=== PATIENT | female | born 1995 | race African-American/Black ===

== ENCOUNTER 2023-11-23 12:27 | Outpatient (AMB) | payer OTHER, SELFPAY ==
--- NOTE | 2023-11-23 12:26 | AM.OFFWIN_ITS ---
Intake Vital Signs 11/23/23 12:28 Height 5 ft 6 in Weight 189 lb BMI 30.5 BP 130/70 Blood Pressure Location Lt brachial Position Sitting Pulse 86 Pulse Source Pulse Oximeter Temp 97.5 F Temp Source Temporal Artery Scan Pulse Oximetry (%) 96 Oxygen Delivery Method Room Air Intake Visit Reasons: [employer]PECT[employer] School PE/Ok per Dr. 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 Gates HPI Details Pt is requesting a physical to enter college. 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 [facility] Social History Patient Tobacco Use Status: Current everyday Tobacco user Physical Exam Vital Signs: Last Vital Signs Temp 97.5 F 11/23/23 12:28 Pulse 86 11/23/23 12:28 BP 130/70 11/23/23 12:28 Pulse Ox 96 11/23/23 12:28 Oxygen Delivery Method Room Air 11/23/23 12:28 BMI result Body Mass Index 30.5 Const General: cooperative and healthy appearing Nutritional Appearance: well nourished Orientation/consciousness: patient oriented x3 Limitations: no limitations HEENT Head: Yes normal to inspection Eyes General: appearance normal, both eyes and all related structures Neck Neck: Yes normal visual inspection Chest Chest palpation & inspection: normal palpation of entire chest wall Resp Effort & Inspection: normal respiratory effort Neuro General: patient oriented x3 Assessment & Plan Assessment & Plan (1) School physical exam: Code(s): Z02.0 - Encounter for examination for admission to educational institution Plan T spot test ordered. When results are back, will sign the form. Orders: Orders T Spot TB Today Z02.0 - Encounter for examination for admission to educational institution Coding Level of Care Code Sports/Work/School Physical Diagnoses School physical exam Z02.0
[2023-11-23 12:28] VITALS: BP 130/70; PULSE 86; TEMP 36.4; O2SAT 96; BMI 30.5
== END 2023-11-23 13:27 | disposition home or self-care (01) ==
PROVIDERS: Visit Provider Internal Medicine
DX: Z02.0 Encounter for examination for admission to educational institution (principal)
CPT/HCPCS: 99499

== ENCOUNTER 2023-11-25 08:21 | Outpatient (REF) | payer OTHER, SELFPAY ==
[2023-11-28 10:49] LABS: TS Negative Control Passed; TS Panel A 0; TS Panel B 0; TS Positive Control Passed; TSpotTB Negative (Negative)
== END 2023-11-25 08:22 | disposition home or self-care (01) ==
LOC: HO.HMGCLDS 08:21
PROVIDERS: Visit Provider Internal Medicine
DX: Z02.0 Encounter for examination for admission to educational institution (principal)
CPT/HCPCS: 36415; 86481

== ENCOUNTER 2023-12-27 15:02 | Emergency (ER) | payer OTHER, SELFPAY ==
--- NOTE | ~2023-12-27 | CT_ITS ---
EXAMINATION: CT SOFT TISSUE NECK WITH CONTRAST CLINICAL INFORMATION: lumps in upper eye lids, neck lymphadenopathy COMPARISON: None. TECHNIQUE: Following the administration of 75 mL of Omnipaque 350 intravenous contrast, helical imaging was performed in the axial plane with generation of coronal and sagittal reformatted images. This CT examination was performed using dose optimization techniques as appropriate, variously including the following: *Automated exposure control. *Adjustment of mA and/or kV according to patient size (this includes techniques or standardized protocols for targeted exams where dose is matched to indication/reason for exam; i.e. extremities or head). *Use of iterative reconstruction technique. DLP: 779 mGy-cm. FINDINGS: Nasopharynx/skull base: The fat planes of the skull base and soft tissues of the nasopharynx are unremarkable. The paranasal sinuses and mastoid air cells are well aerated. The temporomandibular joints are normal. Suprahyoid neck: The oropharynx, oral cavity, and bilateral salivary gland tissues are unremarkable. Accessory right parotid tissue is noted superficial to the anterior right masseter muscle. Infrahyoid neck: The hypopharynx and larynx are unremarkable. No aerodigestive tract mass. Thyroid: Thyromegaly. No focal thyroid lesion is identified. Lymph nodes: There is no cervical chain lymphadenopathy. There is a soft tissue mass along the right trachea at the level of the thoracic inlet measuring up to 3.2 x 1.6 x 2.4 cm, likely representing an enlarged lymph node. Lung apices: Please refer to report from same-day CT of the chest performed concurrently for description of findings in the thorax. Vascular structures: No hemodynamically significant stenosis, dissection, or occlusion. Osseous structures: The osseous structures are intact without suspicious focal lesion. Other: The imaged portions of the brain parenchyma are unremarkable. CT/CT soft tissue neck w IV con IMPRESSION: 1. Thyromegaly. Correlate with thyroid function tests. 2. No cervical lymphadenopathy or other soft tissue abnormality in the neck is identified. 3. Please refer to report from same-day CT of the chest for full description of findings in the thorax. There is a right paratracheal soft tissue mass measuring up to 3.1 cm at the level of the thoracic inlet, most likely representing an enlarged lymph node.
--- NOTE | ~2023-12-27 | CT_ITS ---
EXAMINATION: CT CHEST WITH CONTRAST CLINICAL INFORMATION: Neck lymphadenopathy. Night sweats. COMPARISON: None available. TECHNIQUE: Multidetector volumetric CT imaging of the chest was obtained after the administration of 75 mL of Omnipaque 350 intravenous contrast without immediate adverse reactions. Axial MIP volume rendering provided. Sagittal and coronal reformatted images were obtained. This CT examination was performed using dose optimization techniques as appropriate, variously including the following: *Automated exposure control *Adjustment of mA and/or kV according to patient size (this includes techniques or standardized protocols for targeted exams where dose is matched to indication/reason for exam; i.e. extremities or head) *Use of iterative reconstruction technique DLP: 316 mGy-cm FINDINGS: LUNGS: A few small solid noncalcified pulmonary nodules are noted including a 4 mm subpleural pulmonary nodule at the posterior aspect of the right upper lobe on image 147 of series 8 and a 3 mm pulmonary nodule in the left lower lobe on image 239. A few small intraluminal opacities within the bronchi the right lower and left upper lobes may correspond to intraluminal mucus. Central airways are clear. No consolidation. No tears of the interstitial opacities. MEDIASTINUM: Mediastinal and hilar adenopathy are noted. There is a right upper paratracheal node measuring 1.4 cm in short axis diameter (image 11 of series 5) in addition to a 1.5 cm paratracheal node seen on image 23 of series 5 and other enlarged mediastinal nodes. Multiple bilateral enlarged hilar lymph nodes are observed, measuring up to 1.2 cm in short axis on the right and 1.1 cm on the left. There is a 2 cm subcarinal lymph node. Heart is normal in size. No pericardial effusion. Central vasculature is patent. Thoracic aorta is normal in caliber. Thyroid gland is unremarkable. PLEURA: There is no pleural effusion. No pleural mass or thickening. AXILLA: No lymphadenopathy. UPPER ABDOMEN: Spleen measures 14 cm AP, borderline enlarged. Imaged portion of the upper abdomen is otherwise unremarkable OSSEOUS STRUCTURES: Normal. No aggressive osseous lesions. CT/CT chest w IV con IMPRESSION: 1. Mediastinal and hilar adenopathy. This is nonspecific and could be infectious or inflammatory in nature. In setting of borderline splenomegaly, mononucleosis should be considered. Consider correlation with a Monospot test. Lymphoproliferative disorders would also be on the differential in the setting of a negative Monospot test. 2. A few small solid noncalcified pulmonary nodules measuring up to 4 mm in diameter. Given the age group, these are most typically post infectious/inflammatory in nature. 3. A few small intraluminal opacities within the bronchi the right lower and left upper lobes may correspond to intraluminal mucus. Fleischner guidelines were followed.
--- NOTE | ~2023-12-27 | XR_ITS ---
EXAMINATION: XR CHEST CLINICAL INFORMATION: Chest pain COMPARISON: None available. TECHNIQUE: 2 views of the chest were obtained. FINDINGS: Lungs clear. No pleural effusions. Heart and pulmonary vessels are normal. XR/XR chest 2V IMPRESSION: No active disease.
[2023-12-27 15:14] VITALS: BP 119/79; PULSE 100; RESP 18; TEMP 36.3; O2SAT 97; BMI 29.6
--- NOTE | 2023-12-27 15:15 | ED.GENADULT ---
HPI - General Adult General Chief complaint: General Medical Stated complaint: Sob/lumps eye lid, cheeks,neck Time Seen by Provider: 12/27/23 18:09 Source: patient Mode of arrival: ambulatory Limitations: no limitations and altered mental status History of Present Illness ED Provider: Dr. Bren Au HPI narrative: Patient comes to the emergency room complaining of 2-3 months of lumps in both upper eyelids, pulses of the cheeks in the face, and lymphadenopathy. Patient reports night sweating as well. Patient denies any sore throat, no voice changes. Patient denies any nausea vomiting or diarrhea. No documented fever. Related Data Home Medications ?Medication ?Instructions ?Recorded ?Confirmed No Known Home Meds 11/23/23 Allergies Allergy/AdvReac Type Severity Reaction Status Date / Time No Known Allergies Allergy Verified 12/27/23 15:20 Review of Systems Review of Systems: Constitutional : No Weight loss, No Fever, No Chills, No Night Sweats, No Fatigue, No Malaise ENT/Mouth : No Hearing loss, No Ear Pain, No Nasal Congestion, No Sinus Pain, No Hoarseness, No sore throat, No Rhinorrhea, No Swallowing Difficulty Eyes: No Eye Pain, No Swelling, No Redness, No Foreign Body, No Discharge, No Vision Changes, complaining of growing lumps in the eyelids on the inner side bilaterally, no vision changes Cardiovascular : No Chest Pain, No SOB, No Dyspnea on Exertion, No Orthopnea, No Edema, No Palpitations Respiratory : No Cough, No Sputum, No Wheezing, No Smoke Exposure, No Dyspnea Gastrointestinal : No Nausea, No Vomiting, No Diarrhea, No Constipation, No abdominal Pain, No Hematochezia, No Melena Genitourinary : no irregular bleeding, No Dysuria, No Urinary Frequency, No Hematuria, No Urinary Incontinence, No Urgency, No Flank Pain, No Urinary Flow Changes, No Hesitancy Musculoskeletal : No joint pain, No Myalgias, No Joint Swelling Skin : No Skin Lesions, No rash Neuro : No Weakness, No Numbness, No Paresthesias, No Loss of Consciousness, No Dizziness, No Headache Psych : No Anxiety/Panic, No Depression, No SI/HI/AH/VH, No Social Issues, Heme/Lymph: No Bruising, No Bleeding, complaining of lymphadenopathy on the neck Endocrine : No Polyuria, No Polydipsia, No Temperature Intolerance PMFSH Social History Social History Patient Tobacco Use Status: Current everyday Tobacco user Advance Directives: No Advance Directives Information Provided: No Do you have a plan to hurt others: No Plan Physical Exam ED Vital Signs: Vital Signs - 24 hr 12/27/23 15:14 12/27/23 18:33 12/27/23 19:33 Temperature 97.3 F 98.7 F 98.4 F Pulse Rate 100 70 72 Respiratory Rate 18 14 16 Blood Pressure 119/79 112/78 99/72 Pulse Oximetry 97 96 99 Oxygen Delivery Method Room Air Room Air Room Air 12/27/23 23:17 Temperature 98.6 F Pulse Rate 75 Respiratory Rate 17 Blood Pressure 125/82 Pulse Oximetry 99 Oxygen Delivery Method Room Air BMI result Body Mass Index 29.6 Const Other: Appearance: Alert. Oriented X3. No acute distress. Eyes: Pupils equal, round and reactive to light. Red/fleshy lesions in the inner eyelids, not xanthelasma ENT: Pharynx normal. Palpable plaque above the right salivary gland Neck: Normal inspection. Neck supple. No crepitus, palpable lymph nodes around the neck CVS: Normal heart rate and rhythm. Pulses normal. Normal S1 and S2 Respiratory: No respiratory distress. Breath sounds normal. No Wheezing. No rales Abdomen: Soft and nontender. No rigidity. No distention. Skin: Skin warm and dry. Normal skin color. Normal skin turgor. Extremities: No lower extremity edema. No Lacerations. No Rash Neuro: Oriented X 3. No motor deficit. No sensory deficit. Moving all extremities. No slurred speech. CN 2 through 12 grossly intact Psych: calm, cooperative, normal affect Course Course Course Narrative: RME performed by Vania Colon PA-C. Patient is a 28 year old assigned female at presenting to the emergency department with multiple lumps in her jaw and her left eye lid. Patient states she has seen her PCP for this but it is getting much worse. Patient states that she is supposed to get a head CT. Detailed physical exam and review of systems are deferred to the emulsion coater. EKG, labs, imaging, and ordered. Patient placed back in the waiting room pending room availability and results. Medications Administered Discontinued Medications Generic Name Dose Route Start Last Admin Trade Name Freq PRN Reason Stop Dose Admin Sodium Chloride 1,000 mls @ 999 mls/hr 05/28/24 18:16 12/27/23 19:30 Ns IVCONT 12/27/23 19:16 Infused .Q1H1M ONE Infusion Iohexol 100 ml 12/27/23 19:52 12/27/23 19:52 Iohexol 350 Mg/Ml 100 Ml Infus..Btl IV 12/27/23 19:53 75 ml ONCE ONE Administration Medical Decision Making Medical Decision Making MDM Narrative: -my interpretation of labs: Normal hematology and chemistry, normal TSH, normal calcium -CT scan of the soft tissue neck with contrast and chest to rule out lymphoma pending. Discussed with our fuel cell technician to include the orbits -discussed the CT scan findings with the patient, patient likely has lymphadenopathy, viral versus inflammatory. -Monospot test was added to the patient's labs. However, patient has no other symptoms that may suggest mononucleosis. Patient denies any sore throat, denies fatigue -mononucleosis negative -discussed with the patient that she needs to have close follow-up with her primary care physician and if she continues having swelling inflammation, she may need an ENT referral. -out her eyes, discussed with the patient that she needs to be follow-up by Ophthalmology. Patient states that she has already been seen at the [facility] and has a pending follow-up visit with her test data developer Differential Diagnosis Differential Diagnoses: The differential diagnosis associated with the presentation includes (sialadenitis, viral syndrome, lymphoma) Admission/Observation Consideration of admission/observation: Escalation of care including admission/observation considered (Given patient's multiple complaints, patient was considered) Lab Data [facility] Lab Attestation statement: I reviewed the patient's lab results. 12/27/23 15:34 12/27/23 15:34 Labs: Lab Results 12/27/23 12/27/23 12/28/23 Range/Units 15:34 19:33 00:10 WBC 6.0 (4.8-10.8) X10*3/uL RBC 5.27 (4.20-5.50) X10*6/uL Hgb 14.1 (12.0-16.0) g/dl Hct 42.6 (37.0-47.0) % MCV 80.8 (80.0-98.0) fL MCH 26.8 L (27.0-33.0) pg MCHC 33.1 (31.0-35.0) g/dl RDW 14.6 (11.0-16.0) % Plt Count 273 (160-400) X10*3/uL MPV 10.3 (9.4-12.3) fL Immature Gran % (Auto) 0.2 (0.0-0.4) % Neut % (Auto) 73.1 H (45-73) % Lymph % (Auto) 17.5 L (20-40) % Dukes % (Auto) 6.5 (2-11) % Eos % (Auto) 1.5 (0-4) % Baso % (Auto) 1.2 (0-2) % Lymph # (Auto) 1.1 L (1.2-4.9) X10*3/uL Dukes # (Auto) 0.4 (0.1-1.2) X10*3/uL Eos # (Auto) 0.1 (0.0-0.4) X10*3/uL Baso # (Auto) 0.1 (0.0-0.2) X10*3/uL Abs Immat Gran (auto) 0.01 (0.00-0.03) X10*3/uL Absolute Neuts (auto) 4.4 (2.0-8.3) x10*3/uL Absolute Nucleated RBC 0.000 (0.0-0.012) X10*3/uL Nucleated RBC % (auto) 0.0 (0.0-0.2) /100WBC Sodium 140 (135-145) mmol/L Potassium 3.6 (3.3-5.1) mmol/L Chloride 111 H (96-108) mmol/L Carbon Dioxide 21 L (22-29) mmol/L Anion Gap 12 (12-20) BUN 7 L (9-16) mg/dL Creatinine 0.81 (0.5-1.4) mg/dL Estim Creat Clear Calc 114.3 Estimated GFR > 60 Random Glucose 110 (60-115) mg/dL Calcium 9.3 (8.4-10.2) mg/dL Magnesium 2.0 (1.6-2.6) mg/dL Total Bilirubin 0.3 (0.0-1.0) mg/dL AST 14 (5-31) U/L ALT 10 (0-31) U/L Alkaline Phosphatase 66 (39-117) U/L Troponin I High Sens < 2.7 (<3.5-17.0) ng/L Total Protein 7.3 (6.5-8.0) g/dL Albumin 4.3 (3.5-5.0) g/dL TSH 0.62 (0.32-4.0) uIU/mL Beta HCG, Quant < 2 mIU/mL Urine Color Yellow Urine Appearance Cloudy Urine pH 8.5 (5.0-9.0) Ur Specific [place] 1.020 (1.005-1.025) Urine Protein Negative (Neg-Trace) mg/dL Urine Glucose (UA) Negative (Negative) mg/dL Urine Ketones 15 (Negative) mg/dL Urine Blood Negative (Negative) Urine Nitrite Negative (Negative) Ur Leukocyte Esterase Moderate (2+) H (Negative) Urine RBC 0-2 (0-2) /HPF Urine WBC 11-20 H (0-5) /HPF Ur Squamous Epith Cells 11-20 (0-2) /HPF Urine Bacteria 2+ (None Seen) Hyaline Casts 0-2 (0-2) /LPF Monoscreen Negative (Negative) Influenza Type A (PCR) NEGATIVE (Negative) Influenza Type B (PCR) NEGATIVE (Negative) RSV RNA Qual (PCR) NEGATIVE (Negative) SARS-CoV-2 RNA (RT-PCR) NEGATIVE (Negative) Independent Interpretation I performed an independent interpretation of an: CT Scan Radiology Impression Discussion of test interpretation with radiology: I have reviewed the radiologist's reading. Radiologist Impression: FINDINGS: Nasopharynx/skull base: The fat planes of the skull base and soft tissues of the nasopharynx are unremarkable. The paranasal sinuses and mastoid air cells are well aerated. The temporomandibular joints are normal. Suprahyoid neck: The oropharynx, oral cavity, and bilateral salivary gland tissues are unremarkable. Accessory right parotid tissue is noted superficial to the anterior right masseter muscle. Infrahyoid neck: The hypopharynx and larynx are unremarkable. No aerodigestive tract mass. Thyroid: Thyromegaly. No focal thyroid lesion is identified. Lymph nodes: There is no cervical chain lymphadenopathy. There is a soft tissue mass along the right trachea at the level of the thoracic inlet measuring up to 3.2 x 1.6 x 2.4 cm, likely representing an enlarged lymph node. Lung apices: Please refer to report from same-day CT of the chest performed concurrently for description of findings in the thorax. Vascular structures: No hemodynamically significant stenosis, dissection, or occlusion. Osseous structures: The osseous structures are intact without suspicious focal lesion. Other: The imaged portions of the brain parenchyma are unremarkable. CT/CT soft tissue neck w IV con IMPRESSION: 1. Thyromegaly. Correlate with thyroid function tests. 2. No cervical lymphadenopathy or other soft tissue abnormality in the neck is identified. 3. Please refer to report from same-day CT of the chest for full description of findings in the thorax. There is a right paratracheal soft tissue mass measuring up to 3.1 cm at the level of the thoracic inlet, most likely representing an enlarged lymph node. IMPRESSION: 1. Mediastinal and hilar adenopathy. This is nonspecific and could be infectious or inflammatory in nature. In setting of borderline splenomegaly, mononucleosis should be considered. Consider correlation with a Monospot test. Lymphoproliferative disorders would also be on the differential in the setting of a negative Monospot test. 2. A few small solid noncalcified pulmonary nodules measuring up to 4 mm in diameter. Given the age group, these are most typically post infectious/inflammatory in nature. 3. A few small intraluminal opacities within the bronchi the right lower and left upper lobes may correspond to intraluminal mucus. Critical Care Time Critical Care Time Critical Care Time: Yes Total Critical Care Time: 35 Attestation: I have personally provided critical care time. Time includes review of lab data, radiology results, discussion with consultants, and monitoring for potential decompensation. Intervention performed as documented. Discharge Plan Discharge Clinical Impression: Lymphadenopathy Patient Disposition: Home, Self-Care Instructions: Lymphadenopathy (ED) Additional Instructions: Your serology test was negative for mononucleosis, influenza, RSV and COVID. Please follow-up with your primary care physician tomorrow. If you have any worsening or new symptoms, please return to the emergency room or call 911 Prescriptions: No Action No Known Home Meds Print Language: Trinidadian
--- NOTE | 2023-12-27 15:17 | ECG_ITS ---
Test Reason : TACHYCARDIA Blood Pressure : / mmHG Vent. Rate : 099 BPM Atrial Rate : 099 BPM P-R Int : 122 ms QRS Dur : 086 ms QT Int : 346 ms P-R-T Axes : 071 068 043 degrees QTc Int : 444 ms Normal sinus rhythm Normal ECG No previous ECGs available Referred By: Vania Colon Electronically Signed By:RAFAELA VERDUGO
[2023-12-27 15:41] LABS: MANUAL DIFF FLAG NO
[2023-12-27 15:43] LABS: Basophils Absolute Auto 0.1 X10*3/uL (0.0-0.2); Basophils Percent Auto 1.2 % (0-2); Eosinophils Absolute Auto 0.1 X10*3/uL (0.0-0.4); Eosinophils Percent Auto 1.5 % (0-4); Hematocrit 42.6 % (37.0-47.0); Hemoglobin 14.1 g/dl (12.0-16.0); Imm Gran Abs Auto 0.01 X10*3/uL (0.00-0.03); Imm Gran Pct Auto 0.2 % (0.0-0.4); Lymphocytes Absolute Auto 1.1 X10*3/uL (1.2-4.9); Lymphocytes Percent Auto 17.5 % (20-40); Mean Corpuscular HGB Conc 33.1 g/dl (31.0-35.0); Mean Corpuscular Hemoglobin 26.8 pg (27.0-33.0); Mean Corpuscular Volume 80.8 fL (80.0-98.0); Mean Platelet Volume 10.3 fL (9.4-12.3); Monocytes Absolute Auto 0.4 X10*3/uL (0.1-1.2); Monocytes Percent Auto 6.5 % (2-11); Neutrophils Absolute Auto 4.4 x10*3/uL (2.0-8.3); Neutrophils Percent Auto 73.1 % (45-73); Platelet Count 273 X10*3/uL (160-400); Red Blood Count 5.27 X10*6/uL (4.20-5.50); Red Cell Distribution Width 14.6 % (11.0-16.0)
[2023-12-27 15:57] LABS: Alanine Aminotransferase 10 U/L (0-31); Albumin Level 4.3 g/dL (3.5-5.0); Alkaline Phosphatase 66 U/L (39-117); Anion Gap 12 (12-20); Aspartate Amino Transferase 14 U/L (5-31); Bilirubin Total 0.3 mg/dL (0.0-1.0); Blood Urea Nitrogen 7 mg/dL (9-16); Calcium 9.3 mg/dL (8.4-10.2); Carbon Dioxide 21 mmol/L (22-29); Chloride 111 mmol/L (96-108); Creatinine Clr Calc Pharmacy 114.3; Estimated Glomerular Filt Rate > 60; Glucose Random 110 mg/dL (60-115); Potassium 3.6 mmol/L (3.3-5.1); Sodium 140 mmol/L (135-145); Total Protein 7.3 g/dL (6.5-8.0)
[2023-12-27 16:04] LABS: HCG Quantitative < 2 mIU/mL; Troponin-I High Sensitivity < 2.7 ng/L (<3.5-17.0)
[2023-12-27 16:16] LABS: TSH reflex Free T4 0.62 uIU/mL (0.32-4.0)
[2023-12-27 16:33] LABS: Influenza A PCR NEGATIVE (Negative); Influenza B PCR NEGATIVE (Negative); Resp Syncy Virus RNA Qual PCR NEGATIVE (Negative); SARS COV2 PCR INHOUSE NEGATIVE (Negative)
[2023-12-27] MEDS: 0.9 % Sodium Chloride 1,000 ML 999 ML IVCONT (18:25)
[2023-12-27 18:33] VITALS: BP 112/78; PULSE 70; RESP 14; TEMP 37.1; O2SAT 96
[2023-12-27 19:33] VITALS: BP 99/72; PULSE 72; RESP 16; TEMP 36.9; O2SAT 99
[2023-12-27 19:42] LABS: Appearance Urine Cloudy; Color Urine Yellow; Glucose Urine UA Negative (Negative); Leukocyte Esterase Urine Moderate (2+) (Negative); Nitrite Urine Negative (Negative); PH 8.5 (5.0-9.0); UMIC TRIGGER UACC YES; Urine Blood Negative (Negative); Urine Ketones 15 mg/dL (Negative); Urine Protein Negative (Neg-Trace)
[2023-12-27] MEDS: iohexoL 350 MG/ML 100 ML INFUS..BTL IV (19:52)
[2023-12-27 20:17] LABS: Bacteria Urine 2+ (None Seen); Hyaline Casts Urine 0-2 /LPF (0-2); RBC Urine 0-2 /HPF (0-2); UACC Culture Trigger YES
[2023-12-27 23:17] VITALS: BP 125/82; PULSE 75; RESP 17; TEMP 37; O2SAT 99
[2023-12-28 00:32] LABS: Monotest Negative (Negative)
[2023-12-28 01:10] VITALS: BP 112/79; PULSE 67; RESP 16; TEMP 36.4; O2SAT 99
== END 2023-12-28 00:55 | disposition home or self-care (01) ==
PROVIDERS: Physician Assistant Medical; Emergency Provider Emergency Medicine
DX: R59.1 Generalized enlarged lymph nodes (principal); H02.829 Cysts of unspecified eye, unspecified eyelid; M27.8 Other specified diseases of jaws; Z03.818 Encounter for observation for suspected exposure to other biological agents ruled out
CPT/HCPCS: 0241U; 36415; 70491; 71046; 71260; 80053; 81001; 83735; 84443; 84484; 84702; 85025; 86308; 87086; 87147; 93005; 96360; 99284; 99285; Q9967

== ENCOUNTER → 2023-12-27 15:17 | Outpatient (BNV) | payer OTHER, SELFPAY | PROVIDERS: Emergency Provider Emergency Medicine; Visit Provider Internal Medicine | DX: R00.0 Tachycardia, unspecified (principal) | CPT/HCPCS: 93010 ==